=== PATIENT | female | born 1995 | race African-American/Black ===

== ENCOUNTER 2018-02-19 08:57 | Emergency (ER) | payer OTHER ==
[2018-02-19 09:03] VITALS: BP 105/58; PULSE 57; TEMP 98.7; BMI 20.1
[2018-02-19] MEDS ORDERED: SODIUM CHLORIDE 1,000 ML IV STA (10:20)
--- NOTE | 2018-02-19 10:58 | PDOC ---
History of Present Illness - General Chief Complaint: Pain, Acute Stated Complaint: PAIN, ACUTE Flank Time Seen by Provider: 02/19/18 09:40 History Source: Patient Exam Limitations: No Limitations - History of Present Illness Travel History: No Initial Comments: 02/19/18 10:27 23-year-old female presents to ED with complaints of intermittent right flank pain for the past 3 weeks without aggravating factors. Patient denies fever, chills, nausea, abdominal distention, bowel complaints or urinary complaints. Patient states regular menses and denies GI history. Patient denies recent travel recent illness, or recent change in diet. Timing/Duration: reports: getting worse Quality: reports: moderate, sharpness Abdominal Pain Onset Location: reports: flank (Bilaterally . right greater than left) Pain Radiation: reports: back Aggravating Factors: improves with: None Alleviating Factors: improves with: None Past History - Past Medical History Allergies/Adverse Reactions: Allergies Allergy/AdvReac Type Severity Reaction Status Date / Time No Known Allergies Allergy Verified 02/19/18 09:03 Home Medications: Ambulatory Orders NK [No Known Home Medication] 02/19/18 CVA: No COPD: No - Suicide/Smoking/Psychosocial Hx Smoking History: Never smoked Information on smoking cessation initiated: No Hx Alcohol Use: No Drug/Substance Use Hx: No Substance Use Type: None Patient Lives Alone: No Lives with/in: parents Review of Systems - Review of Systems Able to Perform ROS?: No Constitutional: No: Symptoms Reported HEENTM: No: Symptoms Reported Respiratory: No: Symptoms reported : Yes: Flank Pain Musculoskeletal: Yes: Back Pain Integumentary: No: Symptoms Reported Endocrine: No: Symptoms Reported Hematologic/Lymphatic: No: Symptoms Reported *Physical Exam - Vital Signs Last Vital Signs Temp Pulse Resp BP Pulse Ox 98.7 F 57 L 17 105/58 97 02/19/18 09:00 02/19/18 09:00 02/19/18 09:00 02/19/18 09:00 02/19/18 09:00 - Physical Exam General Appearance: Yes: Nourished, Appropriately Dressed. No: Apparent Distress HEENT: negative: Pale Conjunctivae Neck: positive: Supple Respiratory/Chest: positive: Lungs Clear, Normal Breath Sounds. negative: Respiratory Distress, Accessory Muscle Use Cardiovascular: positive: Regular Rhythm, Regular Rate. negative: Murmur Gastrointestinal/Abdominal: positive: Normal Bowel Sounds, Soft, Tenderness ( right flank . +RUQ. - Martel's). negative: Distended, Guarding, Rebound Musculoskeletal: positive: CVA Tenderness (bilaterally right greater than left) Extremity: positive: Normal Capillary Refill, Other. negative: Pedal Edema Integumentary: positive: Normal Color, Warm, Moist Neurologic: positive: Motor Strength 5/5 (ambulatory) ED Treatment Course - LABORATORY CBC & Chemistry Diagram: 02/19/18 10:51 02/19/18 10:51 Medical Decision Making - Medical Decision Making 02/19/18 10:00 Patient with complaints of right flank pain for the past week now complaining of left flank and left back pain without fever chills. Patient examined CVA tenderness bilaterally with right flank pain. Patient concerning for renal colic versus pyelonephritis versus cholecystitis and colon etiology. Patient ordered for labs, urine will consider imaging once labs are resulted. 02/19/18 12:44 Laboratory Tests 02/19/18 02/19/18 02/19/18 10:51 10:51 10:51 WBC 5.2 Hgb 12.4 Hct 37.1 Plt Count 144 Neutrophils % 65.6 Sodium 141 Potassium 4.0 Chloride 108 H Carbon Dioxide 26 Anion Gap 7 L BUN 17 Creatinine 0.4 L Random Glucose 99 Calcium 9.1 Magnesium 2.0 Total Bilirubin 0.4 AST 18 ALT 17 Alkaline Phosphatase 81 Total Protein 7.2 Albumin 3.4 Lipase 102 Urine Blood 1+ H Ur Leukocyte Esterase Negative Urine RBC (Auto) 3 Urine HCG, Qual Negative Seconded secondary to hematuria. Patient ordered for spiral CT to rule out renal colic/obstructive uropathy. 02/19/18 14:26 CT shows no evidence of urinary tract calculi or obstructive uropathy. No acute pathology within the abdomen or pelvis noted. Noted cystic changes seen within the right ovary which is likely the cause of her pain. Patient will be discharged home with recommendations to follow-up with referred [facility] *DC/Admit/Observation/Transfer Diagnosis at time of Disposition: Right lower quadrant abdominal pain - Discharge Dispostion Disposition: HOME Condition at time of disposition: Good - Referrals Referrals: Kim Basilio MD [Staff Physician] - - Patient Instructions Printed Discharge Instructions: DI for Abdominal Pain-Adult, DI for Ovarian Cyst Additional Instructions: At this time your CAT scan showed an ovarian cyst. I recommend taking Motrin and Tylenol for discomfort. Please also follow up with referred [facility]. - Post Discharge Activity
[2018-02-19 11:06] LABS: BASO % 0.4 % (0-2.0); EOS % 0.7 % (0-4.5); HEMATOCRIT 37.1 % (32.4-45.2); HEMOGLOBIN 12.4 GM/dL (10.7-15.3); LYMPH % 26.8 % (8-40); MCH 28.2 pg (25.7-33.7); MCHC 33.3 g/dl (32.0-36.0); MEAN CELL VOLUME 84.6 fl (80-96); MEAN PLT VOLUME 10.4 fl (7.5-11.1); MONO % 6.5 % (3.8-10.2); NEUT % 65.6 % (42.8-82.8); PLATELET COUNT 144 K/MM3 (134-434); RBC 4.39 M/mm3 (3.60-5.2); RDW 13.5 % (11.6-15.6); WHITE BLOOD COUNT 5.2 K/mm3 (4.0-10.0)
[2018-02-19 11:09] LABS: HCG,QUALITATIVE URINE Negative
[2018-02-19 11:31] LABS: URINE APPEARANCE CLEAR; URINE BILIRUBIN NEGATIVE (<2.0 mg/dL); URINE COLOR YELLOW; URINE GLUCOSE (UA) NEGATIVE (NEGATIVE); URINE KETONE NEGATIVE (NEGATIVE); URINE LEUK ESTERASE NEGATIVE (NEGATIVE); URINE NITRITE NEGATIVE (NEGATIVE); URINE PROTEIN NEGATIVE (NEGATIVE); URINE UROBILINOGEN NEGATIVE mg/dL (0.2-1.0)
[2018-02-19 11:32] LABS: EPI CELLS RARE /HPF (FEW); URINE BACTERIA RARE /hpf (NONE SEEN); URINE MUCUS RARE
[2018-02-19 11:39] LABS: ALBUMIN 3.4 g/dl (3.4-5.0); ALK PHOS 81 U/L (45-117); ANION GAP 7 MMOL/L (8-16); BILIRUBIN,TOTAL 0.4 mg/dL (0.2-1.0); BLOOD UREA NITROGEN 17 mg/dL (7-18); CALCIUM 9.1 mg/dL (8.5-10.1); CHLORIDE 108 mmol/L (98-107); CO2 26 mmol/L (21-32); CREATININE 0.4 mg/dL (0.55-1.02); GLUCOSE,RANDOM 99 mg/dL (74-106); LIPASE 102 U/L (73-393); SGOT/AST 18 U/L (15-37); SGPT/ALT 17 U/L (12-78); SODIUM 141 mmol/L (136-145); TOT PROT 7.2 g/dl (6.4-8.2)
== END 2018-02-19 14:39 | disposition home or self-care (01) ==
LOC: JER 08:57
PROC: 3E0337Z Introduction of Electrolytic and Water Balance Substance into Peripheral Vein, Percutaneous Approach (ICD-10-PCS; principal; 2018-02-19)
DX: R10.31 Right lower quadrant pain (principal)
CPT/HCPCS: 36415; 74176; 80053; 81003; 81015; 83690; 83735; 84703; 85025; 87077; 87086; 96360; 99282-25; J7030

== ENCOUNTER 2019-04-13 11:09 | Emergency (ER) | payer OTHER ==
[2019-04-13 11:21] VITALS: BP 99/64; PULSE 75; TEMP 98.2; BMI 19.3
[2019-04-13 13:33] LABS: EPI CELLS 1.5 /HPF (0-5/HPF); HYALINE CASTS 1 /lpf (0-8); PH,URINE 6.5 (5.0-8.0); URINE APPEARANCE CLEAR; URINE BACTERIA 45.6 /hpf (NEGATIVE); URINE BILIRUBIN NEGATIVE (NEGATIVE); URINE COLOR YELLOW; URINE GLUCOSE (UA) NEGATIVE (NEGATIVE); URINE KETONE NEGATIVE (NEGATIVE); URINE LEUK ESTERASE NEGATIVE (NEGATIVE); URINE NITRITE NEGATIVE (NEGATIVE); URINE PROTEIN NEGATIVE (NEGATIVE); URINE RBC 3 /hpf (0-4); URINE UROBILINOGEN 0.2 mg/dL (0.2-1.0); URINE WBC 1 /hpf (0-5)
--- NOTE | 2019-04-13 13:45 | PDOC ---
History of Present Illness - General Chief Complaint: Sore Throat Stated Complaint: THROAT PAIN Time Seen by Provider: 04/13/19 11:29 - History of Present Illness Initial Comments: 04/13/19 13:43 24-year-old female without comorbidities presents for evaluation of 2 days of sore throat 2 weeks of back pain without urinary symptoms no systemic symptoms Past History - Past Medical History Allergies/Adverse Reactions: Allergies Allergy/AdvReac Type Severity Reaction Status Date / Time No Known Allergies Allergy Verified 04/13/19 11:42 Home Medications: Ambulatory Orders NK [No Known Home Medication] 02/19/18 CVA: No COPD: No - Immunization History Immunization Up to Date: Yes - Psycho Social/Smoking Cessation Hx Smoking History: Never smoked Information on smoking cessation initiated: No Hx Alcohol Use: No Drug/Substance Use Hx: No Substance Use Type: None Review of Systems - Review of Systems Constitutional: No: Fever HEENTM: Yes: Throat Pain Musculoskeletal: Yes: Back Pain *Physical Exam - Vital Signs Last Vital Signs Temp Pulse Resp BP Pulse Ox 98.2 F 75 17 99/64 99 04/13/19 11:14 04/13/19 11:14 04/13/19 11:14 04/13/19 11:14 04/13/19 11:14 - Physical Exam Comments: 04/13/19 13:43 GENERAL: The patient is awake, alert, and fully oriented, in no acute distress. HEAD: Normal with no signs of trauma. EYES: sclera anicteric, conjunctiva clear. ENT: Ears normal NECK: Normal range of motion LUNGS: Breath sounds equal, clear to auscultation bilaterally. No wheezes, and no crackles. HEART: S1 and S2 without murmur, rub or gallop. ABDOMEN: Soft, nontender, normoactive bowel sounds. No guarding, no rebound. No masses. EXTREMITIES: Normal range of motion, no edema. No clubbing or cyanosis. No cords, erythema, or tenderness. NEUROLOGICAL: Cranial nerves II through XII grossly intact. Normal speech, normal gait. PSYCH: Normal mood, normal affect. SKIN: Warm, Dry, normal turgor, no rashes or lesions noted. ED Treatment Course - ADDITIONAL ORDERS Additional order review: Laboratory Results 04/13/19 04/13/19 12:35 12:35 Urine Color Yellow Urine Appearance Clear Urine pH 6.5 D Ur Specific [place] 1.018 Urine Protein Negative Urine Glucose (UA) Negative Urine Ketones Negative Urine Blood 2+ H Urine Nitrite Negative Urine Bilirubin Negative Urine Urobilinogen 0.2 Ur Leukocyte Esterase Negative Urine WBC (Auto) 1 Urine RBC (Auto) 3 Urine Casts (Auto) 1 U Epithel Cells (Auto) 1.5 Urine Bacteria (Auto) 45.6 Urine HCG, Qual Negative Medical Decision Making - Medical Decision Making 04/13/19 13:43 Strep negative most likely viral pharyngitis Back pain is most likely musculoskeletal. Patient has no urinary symptoms pain for 2 weeks urine is questionable for UTI however it appears to be a contaminated specimen will hold off and wait for culture. Patient is in agreement with the plan Discharge - Discharge Information Problems reviewed: Yes Clinical Impression/Diagnosis: Back pain, Viral pharyngitis Condition: Stable Disposition: HOME - Admission No - Follow up/Referral Referrals: Radha Gipson MD [Primary Care Provider] - - Patient Discharge Instructions Additional Instructions: Please follow-up with your primary care physician in 1 to 2 days without fail for further evaluation and treatment options. A urine appeared to be contaminated and did not show much evidence for urinary tract infection. A culture was sent and should you require antibiotics we will call you. Your rapid strep test was negative this is most likely a viral pharyngitis. Warm salt water gargles 5-6 times a day will help with your pain. Tylenol and Motrin as directed for both your back and throat pain. Return to the emergency room for worsening symptoms. And again, please follow-up with your primary care physician without fail in 1 to 2 days. - Post Discharge Activity
== END 2019-04-13 13:51 | disposition home or self-care (01) ==
LOC: JERFT 11:09
DX: J02.9 Acute pharyngitis, unspecified (principal); B97.89 Other viral agents as the cause of diseases classified elsewhere
CPT/HCPCS: 81003; 84703; 87070; 87086; 87880; 99282-25